=== PATIENT | male | born 1965 | race Caucasian/White ===

== ENCOUNTER 2018-11-27 09:38 | Day surgery (SDC) | payer OTHER ==
[~2018-11-27 09:38] MED LIST: CEFAZOLIN 2 GM/50 ML (PMX) 50 ML IVPB
[2018-11-27 10:50] LABS: ADD MAN DIFF? NO; BASOPHIL # 0.1 10^3/ul (0.0-0.1); BASOPHILS % 0.7 % (0.0-2.0); EOSINOPHILS # 0.1 10^3/ul (0.0-0.5); HEMATOCRIT 48.4 % (42.0-52.0); HEMOGLOBIN 16.4 g/dl (14.0-18.0); LYMPHOCYTES # 2.6 10^3/ul (0.8-2.9); LYMPHOCYTES % 38.4 % (15.0-51.0); MEAN CORPUSCULAR HEMOGLOBIN 29.8 pg (29.0-33.0); MEAN CORPUSCULAR HGB CONC 33.9 g/dl (32.0-37.0); MEAN PLATELET VOLUME 8.9 fl (7.4-10.4); MONOCYTE # 0.6 10^3/ul (0.3-0.9); MONOCYTES % 8.1 % (0.0-11.0); NEUTROPHIL # 3.5 10^3/ul (1.6-7.5); NEUTROPHILS % 51.5 % (39.0-77.0); PLATELET COUNT 314 10^3/UL (140-415); RED CELL DISTRIBUTION WIDTH 13.2 % (11.5-14.5)
[2018-11-27 10:50] LABS: WHITE BLOOD COUNT 6.8 10^3/ul (4.8-10.8)
[2018-11-27] MEDS: SOD CHLORIDE 0.9% 1,000 ML IV (10:55)
[2018-11-27 11:10] LABS: ANION GAP 9 (5-13); BLOOD UREA NITROGEN 11 mg/dl (7-20); CALCIUM 9.2 mg/dl (8.4-10.2); CARBON DIOXIDE 28 mmol/L (21-31); CHLORIDE 103 mmol/L (97-110); CREATININE 0.63 mg/dl (0.61-1.24); Estimated GFR > 60 mL/min (>60); GLUCOSE 106 mg/dl (70-220); POTASSIUM 3.9 mmol/L (3.5-5.1); SODIUM 140 mmol/L (135-144)
[2018-11-27 11:27] LABS: PROTIME 13.3 Sec (11.9-14.9)
[2018-11-27] MEDS ORDERED: BUPIVACAINE 0.5%/EPI (SDV) 30 ML INJ (12:03)
[2018-11-27] MEDS ORDERED: BUPIVACAINE 0.25%/EPI (SDV) 10 ML INJ (12:07)
[2018-11-27] MEDS ORDERED: FENTAnyl 50 MCG/ML VIAL (12:07)
[2018-11-27] MEDS: LIDOCAINE 1% (MPF) 30 ML INJ (12:30)
[2018-11-27] MEDS: BUPIVACAINE 0.25%/EPI (SDV) 10 ML INJ (12:30)
[2018-11-27] MEDS ORDERED: CEFAZOLIN 1 GM INJ (12:31)
[2018-11-27] MEDS ORDERED: LACTATED RINGER'S 1,000 ML IV (13:20)
[2018-11-27] MEDS ORDERED: ONDANSETRON 4 MG INJ IV (13:30)
[2018-11-27] MEDS ORDERED: HYDROCODONE/APAP (5/325) TAB PO (13:30)
[2018-11-27] MEDS ORDERED: morphine 2 MG INJ IV (13:30)
== END 2018-11-27 14:26 | disposition home or self-care (01) ==
LOC: SDS 09:38
DX: L72.0 Epidermal cyst (principal); I10 Essential (primary) hypertension
CPT/HCPCS: 14001; 71045; 80048; 85025; 85610; 85730; 88307; 93005